=== PATIENT | male | born 2005 | race Caucasian/White ===

== ENCOUNTER 2023-12-21 17:02 | Emergency (ER) | payer OTHER ==
[~2023-12-21] VITALS: Ht 172.7 cm; Wt 61.8 kg
[2023-12-21 20:16] LABS: BASO # 0.1 10^3/uL (0.0-0.2); BASO % 0.6 % (0.0-1.0); EOS # 0.1 10^3/uL (0.0-0.5); EOS % 0.7 % (0.0-3.0); HEMOGLOBIN 16.1 g/dl (13.5-17.5); LYMPH % 24.1 % (24.0-44.0); MEAN CORPUSCULAR HEMOGLOBIN 31.3 pg (27.0-33.0); MEAN CORPUSCULAR HGB CONC 34.3 g/dl (32.0-36.5); MEAN CORPUSCULAR VOLUME 91.4 fl (80.0-96.0); MONO # 0.5 10^3/uL (0.0-0.8); MONO % 5.8 % (2.0-8.0); NEUTROPHILS # 5.6 10^3/uL (1.5-8.5); NEUTROPHILS % 68.6 % (36.0-66.0); PLATELET COUNT, AUTOMATED 326 10^3/uL (150-450); RED BLOOD COUNT 5.14 10^6/uL (4.30-6.10); WHITE BLOOD COUNT 8.2 10^3/uL (4.0-10.0)
[2023-12-21 20:35] LABS: LIPASE 23 U/L (12-53)
[2023-12-21 20:37] LABS: ALBUMIN 4.9 G/DL (3.2-5.2); ALKALINE PHOSPHATASE 67 U/L (46-116); ALT/SGPT 18 U/L (7.0-40); AST/SGOT 19 U/L (<34); BILIRUBIN,DIRECT 0.3 MG/DL (<0.4); BILIRUBIN,TOTAL 0.9 MG/DL (0.3-1.2); BLOOD UREA NITROGEN 13 MG/DL (9-23); CALCIUM LEVEL 9.8 MG/DL (8.5-10.1); CARBON DIOXIDE LEVEL 28 MMOL/L (20-31); CHLORIDE LEVEL 105 MMOL/L (98-107); CREATININE FOR GFR 0.95 MG/DL (0.70-1.30); GLUCOSE, FASTING 89 MG/DL (60-100); POTASSIUM SERUM 4.3 MMOL/L (3.5-5.1); SODIUM LEVEL 140 MMOL/L (136-145); TOTAL PROTEIN 8.2 G/DL (5.7-8.2)
[2023-12-21] MEDS ORDERED: ISOVUE-370 76% 100ML VIAL As Ordered ONE (21:01)
[2023-12-21] MEDS ORDERED: DOXY-443 PO (22:34)
[2023-12-21] MEDS ORDERED: cefTRIAXone 500MG VIAL IM ONE (22:35)
[2023-12-21] MEDS ORDERED: LIDOCAINE 1% SDV 5ML VIAL DILUENT ONE (22:35)
[2023-12-21] MEDS ORDERED: DOXYCYCLINE HYCLATE 100MG TABLET PO ONE (22:35)
[2023-12-21 22:56] VITALS: BP 129/83; TEMP 98; O2SAT 100
== END 2023-12-21 22:58 | disposition home or self-care (01) ==
LOC: M ED 17:02
DX: N50.811 Right testicular pain (principal); N50.812 Left testicular pain; R10.30 Lower abdominal pain, unspecified; Z88.1 Allergy status to other antibiotic agents
CPT/HCPCS: 74177; 76870; 80048; 80076; 81001; 83690; 85025; 87490; 87590; 87661; 93976; 96372; 99284; J0696; Q9967